=== PATIENT | female | born 1995 | race Caucasian/White ===

== ENCOUNTER 2018-06-19 07:25 | Emergency (ER) | payer OTHER ==
[2018-06-19 07:31] VITALS: TEMP 100.5; BMI 41.5
--- NOTE | 2018-06-19 07:38 | PDOC ---
History of Present Illness - General Chief Complaint: Cold Symptoms Stated Complaint: cough Time Seen by Provider: 06/19/18 07:36 History Source: Patient Exam Limitations: No Limitations - History of Present Illness Initial Comments: 06/19/18 07:36 23 yo F previously healthy here today with 3 days of cough, sore throat, hoarse voice and nasal congestion. subjective chills. no f. no n/v no myalgia. states sick contacts at her job. no rash did not take anything for pain prior to arrival. has had sxs of sore throat and nasal congestion for 3 days. Past History - Past Medical History Allergies/Adverse Reactions: Allergies Allergy/AdvReac Type Severity Reaction Status Date / Time No Known Allergies Allergy Verified 06/19/18 07:26 Home Medications: Ambulatory Orders Ibuprofen [Motrin -] 600 mg PO TID PRN #90 tablet MDD 3 06/19/18 Pseudoephedrine HCl 30 mg PO QID PRN #15 tablet 06/19/18 COPD: No - Surgical History Abdominal Surgery: Yes (sleeve) - Immunization History Immunization Up to Date: Yes - Suicide/Smoking/Psychosocial Hx Smoking History: Never smoked Have you smoked in the past 12 months: No Hx Alcohol Use: Yes (ocasional) Drug/Substance Use Hx: No Substance Use Type: None Review of Systems - Review of Systems Constitutional: Yes: Chills HEENTM: Yes: Nose Congestion, Throat Pain. No: Eye Pain Respiratory: Yes: Cough Cardiac (ROS): No: Chest Pain Musculoskeletal: No: Back Pain, Gout, Joint Pain Psychiatric: No: Stressors Endocrine: No: Excessive Sweating All Other Systems: Reviewed and Negative *Physical Exam - Vital Signs Last Vital Signs Temp Pulse Resp BP Pulse Ox 100.5 F H 96 H 18 135/63 100 06/19/18 07:26 06/19/18 07:26 06/19/18 07:26 06/19/18 07:26 06/19/18 07:26 - Physical Exam Comments: 06/19/18 07:37 awake alert NAD clear rhinorrhea. throat no erythea. no exudate. no tonsillar hypertrophy. lungs clear bilaterally heart rrr no mrg. abd soft nt nd. ext wwp no edema. skin warm and dry no rash. Moderate Sedation - Procedure Monitoring Vital Signs: Procedure Monitoring Vital Signs Temperature 100.5 F H 06/19/18 07:26 Pulse Rate 96 H 06/19/18 07:26 Respiratory Rate 18 06/19/18 07:26 Blood Pressure 135/63 06/19/18 07:26 O2 Sat by Pulse Oximetry (%) 100 06/19/18 07:26 Medical Decision Making - Medical Decision Making 06/19/18 07:38 differential viral uri, flu ( less likely no high fevers r myalgia), pna, plan nasal decongestant, motrin preg test. cxr reassess. 06/19/18 08:46 cxr negative for infiltrate. pt given motrin and pseudophed. will dc home with rx for both. 06/19/18 09:16 pt flu positive. called results to patient and discussed care. no tamiflu and large se profile pt with sxs for 3 days already. *DC/Admit/Observation/Transfer Diagnosis at time of Disposition: Viral URI with cough - Discharge Dispostion Disposition: HOME Condition at time of disposition: Improved Decision to Admit order: No - Prescriptions Prescriptions: Ibuprofen [Motrin -] 600 mg PO TID PRN #90 tablet MDD 3 PRN Reason: Pain Pseudoephedrine HCl 30 mg PO QID PRN #15 tablet PRN Reason: Nasal Congestion - Referrals Referrals: Júnior Gold [Primary Care Provider] - - Patient Instructions Printed Discharge Instructions: DI for Viral Upper Respiratory Infection -- Adult Additional Instructions: you should get plenty of rest, and drink plenty of fluids. take motrin 600 mg every 8 hrs as needed for pain . take psuedophed 30 mg every 6 hrs as needed for nasal congestion. you can take over the counter cough and cold medicine. follow up with your regular doctor. return for any problems or concerns. - Post Discharge Activity
[2018-06-19] MEDS ORDERED: IBUPROFEN 600 MG TABLET (FP) PO ONE ×2 (07:39→08:15)
[2018-06-19] MEDS ORDERED: PSEUDOEPHEDRINE HCL 30 MG TABLET PO ONE (07:45)
[2018-06-19] MEDS ORDERED: PSEUDOEPHEDRINE HCL 30 MG TABLET ONE (08:15)
[2018-06-19 09:06] VITALS: BP 124/69; PULSE 91
== END 2018-06-19 09:07 | disposition home or self-care (01) ==
LOC: FER 07:25
DX: J06.9 Acute upper respiratory infection, unspecified (principal); B97.89 Other viral agents as the cause of diseases classified elsewhere; R05 Cough
CPT/HCPCS: 71046-TC-FY; 84703; 87804; 99282-25